=== PATIENT | male | born 1970 | race Caucasian/White ===

== ENCOUNTER 2017-02-13 05:57 | Emergency (ER) | payer OTHER ==
[~2017-02-13] VITALS: Ht 167.6 cm; Wt 95.3 kg
[2017-02-13 06:10] VITALS: BP 162/98
[2017-02-13] MEDS ORDERED: LEVO175T2 PO (06:24)
[2017-02-13] MEDS ORDERED: OXYC-323 PO (06:31)
[2017-02-13] MEDS ORDERED: DIAZ5TAB PO (06:31)
--- NOTE | 2017-02-13 06:31 | PHYS DOC ---
Adult General Chief Complaint Chief Complaint: BACK PAIN OR INJURY HPI HPI Patient is a 46 year old male presenting to the emergency department for evaluation of right lower back pain that started yesterday after trying to show off at the [employer]. He says that he twisted his torso and felt a sharp pain in his right lower back and it has since started radiating down into his right buttocks and right hip and upper leg. Patient says that it hurts to walk but he is able to do so with no difficulty and he denies any weakness numbness tingling or bowel or bladder incontinence. Patient says that he took 800 mg of ibuprofen with no relief and that he was not able to sleep last night due to the pain as he feels spasming. Review of Systems Review of Systems Constitutional: Denies fever or chills [] Respiratory: Denies cough or shortness of breath [] : Denies dysuria or hematuria [] Musculoskeletal: + back pain. No joint pain [] Neurologic: Denies headache, focal weakness or sensory changes [] Physical Exam Physical Exam Constitutional: Well developed, well nourished, no acute distress, non-toxic appearance. [] Cardiovascular:Heart rate regular rhythm, no murmur [] Lungs & Thorax: Bilateral breath sounds clear to auscultation [] Abdomen: R L1-L3 lumbar paraspinal ttp. Neurologic: Alert and oriented X 3, normal motor function, normal sensory function, no focal deficits noted. [] EKG EKG [] Radiology/Procedures Radiology/Procedures [] Course & Med Decision Making Course & Med Decision Making Patient with classic musculoskeletal back pain now with lumbar radiculopathy. Injury likely is 1 L2 given the location of pain and dermatomal distribution of pain. No red flag signs or symptoms necessitating an emergent MRI. Given patient appears well and has normal neurologic exam will discharged with recommendation for continued NSAIDs and will provide Percocet and Valium for pain and spasm and tell him to follow with his primary care provider early next week and to come back to the ER sooner with any worsening pain weakness or incontinence or other general concerns. Dragon Disclaimer Dragon Disclaimer This electronic medical record was generated, in whole or in part, using a voice recognition dictation system. Departure Departure Impression: Primary Impression: Lumbar strain Additional Impression: Lumbar radicular pain Disposition: HOME, SELF-CARE Condition: GOOD Referrals: UNKNOWN PCP NAME (PCP) VLADIMIR CALDWELL MD Patient Instructions: Lumbosacral Radiculopathy Additional Instructions: TAKE 400MG OF IBUPROFEN EVERY 6 HOURS AND THE PERCOCET FOR BREAKTHROUGH PAIN. THE VALIUM IS FOR SPASM. STILL STAY ACTIVE BUT DO NOT LIFT ANYTHING OVER 10 POUNDS. FOLLOW WITH YOUR PCP INITIALLY THEY WILL LIKELY WANT TO DO PHYSICAL THERAPY AND THEN CONSIDER MRI IF NOT IMPROVING. DR. CALDWELL IS OUR NEUROSURGEON BUT HE WILL LIKELY WANT AN MRI DONE BEFORE CONSULTATION. Scripts Diazepam (VALIUM) 5 Mg Tablet 5 MG PO TID Y for MUSCLE SPASMS, #10 TAB Prov: ZULY DURBIN DO 02/13/17 Oxycodone/Apap 5-325 (PERCOCET 5-325 MG TABLET) 1 Each Tablet 1 TAB PO PRN Q6HRS Y for PAIN, #20 TAB 0 Refills Prov: ZULY DURBIN DO 02/13/17 Problem Qualifiers Primary Impression: Lumbar strain Encounter type: initial encounter Qualified Codes: S39.012A - Strain of muscle, fascia and tendon of lower back, initial encounter ZULY DURBIN DO Feb 13, 2017 06:31
[2017-02-13] MEDS ORDERED: diazePAM 5 MG TABLET PO ONE (07:00)
[2017-02-13] MEDS ORDERED: KETOROLAC TROMETHAMINE 60 MG/2 ML INJ. IM ONE (07:00)
[2017-02-13] MEDS ORDERED: oxyCODONE/APAP 5/325 1 TAB TABLET PO ONE (07:00)
== END 2017-02-13 06:45 | disposition home or self-care (01) ==
LOC: ER 05:57
DX: S39.012A Strain of muscle, fascia and tendon of lower back, initial encounter (principal); M54.16 Radiculopathy, lumbar region; X58.XXXA Exposure to other specified factors, initial encounter; Y93.89 Activity, other specified; Y92.89 Other specified places as the place of occurrence of the external cause; Y99.8 Other external cause status
CPT/HCPCS: 96372; 99283; J1885